=== PATIENT | male | born 1995 | race Caucasian/White ===

== ENCOUNTER → 2018-05-01 | Emergency (ER) | payer BC, OTHER ==
[~2018-05-01] VITALS: Ht 185.4 cm; Wt 72.6 kg
[~2018-05-01] MED LIST: ACETAMINOPHEN 500 MG TAB (TYLENOL) PO STA; CEFD300C3 PO; IBUPROFEN 800 MG (MOTRIN) TAB PO STA; LACTATED RINGERS 1,000 ML IV ONE; NS IV 1000 ML 1,000 ML ONE; RX-OSELTAMIVIR 75 MG (TAMIFLU) BOX OF 10 PO STA; cefTRIAXone FOR IV USE 1,000 MG in WATER (STERILE) FOR INJECTION 10 ML IV ONE
[2018-05-01 01:41] LABS: BASOPHILS % (AUTO) 0 % (0-10); EOSINOPHILS % (AUTO) 0 % (0-10); HEMATOCRIT 42 % (40-54); LYMPHOCYTES # (AUTO) 0.6 X 10^3 (1.0-4.0); LYMPHOCYTES % (AUTO) 5 % (12-44); MEAN CORPUSCULAR HEMOGLOBIN 31 PG (25-34); MEAN CORPUSCULAR HGB CONC 36 G/DL (32-36); MEAN CORPUSCULAR VOLUME 86 FL (80-99); MEAN PLATELET VOLUME 9.3 FL (7.4-10.4); MONOCYTES # (AUTO) 1.1 X 10^3 (0.0-1.0); MONOCYTES % (AUTO) 9 % (0-12); NEUTROPHILS # (AUTO) 10.4 X 10^3 (1.8-7.8); NEUTROPHILS % (AUTO) 86 % (42-75); PLATELET COUNT 228 10^3/uL (130-400); RED CELL DISTRIBUTION WIDTH 12.2 % (10.0-14.5); WHITE BLOOD COUNT 12.1 10^3/uL (4.3-11.0)
[2018-05-01 01:50] LABS: INR 1.2 (0.8-1.4); PROTHROMBIN TIME PATIENT 14.8 SEC (12.2-14.7)
--- NOTE | 2018-05-01 01:57 | ED General ---
General Chief Complaint: Fever-Adult/Adol Stated Complaint: PASSED OUT & HIT HEAD AT 9:30AM,SHAKING, CONFUSSIO Source of Information: Patient, Other (GIRLFRIEND) History of Present Illness Date Seen by Provider: May 01, 2018 Time Seen by Provider: 01:25 Initial Comments PT ARRIVES VIA POV FROM [place] PT STATES THAT AT 0915 THIS AM, HE PASSED OUT AT WORK STATES HE STARTED TO HAVE BAD CHILLS, AND THEN HIS STOMACH HURT A LITTLE, AND HE PASSED OUT HE WAS WALKING TO BATHROOM WAS NOT WITNESSED, BUT STATES HE HIT HIS HEAD/MOUTH ON THE SINK HE BROKE 3 TEETH ON LEFT UPPER MOLAR/PREMOLAR AREA HAS A SORE BUMP BEHIND HIS LEFT EAR, FROM WHERE HE HIT HIS HEAD. NO NECK PAIN NO PARESTHESIAS OR MOTOR DEFICITS NO VISION CHANGES NO DIZZINESS NO HEADACHE NO PALPITATIONS NO CHEST PAIN OR SHORTNESS OF BREATH STATES HE DID REPORT TO HIS EMPLOYER, BUT DID NOT SEEK MEDICAL CARE UNTIL NOW PT DID GO TO A DENTIST AT 1000 AM TODAY, AND "DIDN'T CARE FOR HIM", SO WENT TO ANOTHER DENTIST AT 1400 TODAY AND THAT DENTIST PULLED HIS TOOTH AND GAVE RX FOR CLINDAMYCIN STATES HIS STOMACH HAS NOT HURT SINCE THAT TIME NO NAUSEA/VOMITING/DIARRHEA STATES HE IS URINATING A NORMAL AMOUNT AND NO PAIN / DISCOMFORT WITH URINATING STATES HE HAS NOT EATEN TODAY--ONLY BEEN DRINKING COFFEE--STATES HIS MOUTH HURTS FROM WHERE THE TOOTH WAS PULLED NO COUGH OR NASAL CONGESTION/DRAINAGE NO SORE THROAT STATES HE HAS CONTINUED TO HAVE CHILLS AND HAS BEEN SHIVERING OFF AND ON ALL DAY HIS MOM CHECKED HIS TEMP AROUND 2000 TONIGHT AND IT WAS 101, SO SHE GAVE HIM 1 ADVIL 200 MG PT HAS BEEN HAVING CHILLS AND SHAKING AND HIS TEETH WERE CHATTERING, SO CAME HERE. PT STATES HE HAS PASSED OUT BEFORE, AND WAS TOLD BECAUSE HIS BLOOD PRESSURE WAS LOW PT DOES DRINK "4-5 BEERS" EVERY DAY, BUT CLAIMS NO BEER YESTERDAY OR TODAY. NO SEIZURE ACTIVITY REPORTED NOW OR IN THE PAST PCP: DR. VARMA IN [facility] Allergies and Home Medications Allergies Coded Allergies: Penicillins (Verified Allergy, Unknown, 05/01/18) Patient Home Medication List Home Medication List Reviewed: Yes Review of Systems Review of Systems Constitutional: chills, malaise, weakness EENTM: see HPI, dental problems, mouth pain, other (NO PHOTOPHOBIA); No ear pain, No blurred vision, No double vision, No mouth swelling, No epistaxis, No nose congestion, No nose pain, No throat pain Respiratory: no symptoms reported; No cough, No short of breath, No wheezing Cardiovascular: see HPI; No chest pain, No edema, No palpitations; syncope; No vascular heart diseas Gastrointestinal: see HPI, abdominal pain; No diarrhea, No nausea, No vomiting Genitourinary: no symptoms reported; No decreased output Musculoskeletal: no symptoms reported Skin: no symptoms reported Psychiatric/Neurological: See HPI; Denies Headache, Denies Numbness, Denies Paresthesia, Denies Seizure, Denies Tingling, Denies Weakness Hematologic/Lymphatic: No Symptoms Reported Immunological/Allergic: no symptoms reported Past Vlxxoqi-Gbmhpi-Jtxekt Hx Patient Social History Alcohol Use: Regular Use (DRINKS 4-5 BEERS EVERY DAY) Recreational Drug Use: No Smoking Status: Never a Smoker (BUT CHEWS TOBACCO) Type Used: Smokeless Tobacco Recent Foreign Travel: No Immunizations Up To Date Tetanus Booster (TDap): Less than 5yrs PED Vaccines UTD: Yes Past Medical History Surgeries: Yes (RIGHT HAND FX/PINNED) Orthopedic, Tonsillectomy Respiratory: No Cardiac: No Neurological: No Genitourinary: No Gastrointestinal: No Musculoskeletal: Yes (FX RIGHT HAND/ORIF) Fractures Endocrine: No HEENT: Yes (ENLARGED ADENOIDS) Tonsilitis Cancer: No Psychosocial: No Integumentary: No Blood Disorders: No Physical Exam Vital Signs Vital Signs - First Documented 05/01/18 01:25 Temp 104.3 Pulse 100 Resp 20 B/P (MAP) 113/73 (86) Pulse Ox 92 O2 Delivery Room Air Capillary Refill : Height, Weight, BMI Height: '" Weight: lbs. oz. kg; BMI Method: General Appearance: No Apparent Distress, Thin, Other (FLUSHED, VERY WARM, FLAT AFFECT. ) HEENT: PERRL/EOMI, TMs Normal, Pharynx Normal, Other (LEFT UPPER PREMOLAR IS MISSING, AND 1ST AND 2ND MOLARS ON LEFT UPPER JAW WITH CHIPS/FRACTURES. NO BLEEDING OR GUM SWELLING. MILD TENDERNESS TO LEFT MASTOID AREA. NO SWELLING OR BRUISING NOTED. ) Neck: Full Range of Motion, Normal Inspection, Non Tender, Supple Respiratory: Chest Non Tender, Normal Breath Sounds, No Accessory Muscle Use, No Respiratory Distress Cardiovascular: Regular Rate, Rhythm, No Edema, No Gallop, No JVD, No Murmur, Normal Peripheral Pulses Gastrointestinal: Normal Bowel Sounds, No Organomegaly, No Pulsatile Mass, Non Tender, Soft Back: Normal Inspection, No CVA Tenderness, No Vertebral Tenderness Extremity: Normal Capillary Refill, Normal Inspection, Normal Range of Motion, Non Tender, No Calf Tenderness, No Pedal Edema Neurologic/Psychiatric: Alert, Oriented x3, No Motor/Sensory Deficits, Normal Mood/Affect, 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 ); No Diaphoresis, No Petechia, No Rash Focused Exam Lactate Level 05/01/18 01:31: Lactic Acid Level 0.75 Lactic Acid Level Laboratory Tests Test 05/01/18 01:31 Lactic Acid Level 0.75 MMOL/L (0.50-2.00) Progress/Results/Core Measures Suspected Sepsis SIRS Temperature: Pulse: Respiratory Rate: Laboratory Tests 05/01/18 01:31: White Blood Count 12.1H Blood Pressure / Mean: 05/01/18 01:31: Lactic Acid Level 0.75 Laboratory Tests 05/01/18 01:31: Creatinine 0.91, INR Comment 1.2, Platelet Count 228, Total Bilirubin 0.8 Results/Orders Lab Results Laboratory Tests Test 05/01/18 01:31 05/01/18 01:33 05/01/18 01:40 05/01/18 01:51 Range/Units White Blood Count 12.1 H 4.3-11.0 10^3/uL Red Blood Count 4.82 4.35-5.85 10^6/uL Hemoglobin 15.0 13.3-17.7 G/DL Hematocrit 42 40-54 % Mean Corpuscular Volume 86 80-99 FL Mean Corpuscular Hemoglobin 31 25-34 PG Mean Corpuscular Hemoglobin Concent 36 32-36 G/DL Red Cell Distribution Width 12.2 10.0-14.5 % Platelet Count 228 130-400 10^3/uL Mean Platelet Volume 9.3 7.4-10.4 FL Neutrophils (%) (Auto) 86 H 42-75 % Lymphocytes (%) (Auto) 5 L 12-44 % Monocytes (%) (Auto) 9 0-12 % Eosinophils (%) (Auto) 0 0-10 % Basophils (%) (Auto) 0 0-10 % Neutrophils # (Auto) 10.4 H 1.8-7.8 X 10^3 Lymphocytes # (Auto) 0.6 L 1.0-4.0 X 10^3 Monocytes # (Auto) 1.1 H 0.0-1.0 X 10^3 Eosinophils # (Auto) 0.0 0.0-0.3 10^3/uL Basophils # (Auto) 0.0 0.0-0.1 10^3/uL Neutrophils % (Manual) 87 % Lymphocytes % (Manual) 2 % Monocytes % (Manual) 6 % Band Neutrophils 5 % Blood Morphology Comment NORMAL Prothrombin Time 14.8 H 12.2-14.7 SEC INR Comment 1.2 0.8-1.4 Activated Partial Thromboplast Time 38 H 24-35 SEC Sodium Level 139 135-145 MMOL/L Potassium Level 3.9 3.6-5.0 MMOL/L Chloride Level 104 98-107 MMOL/L Carbon Dioxide Level 23 21-32 MMOL/L Anion Gap 12 5-14 MMOL/L Blood Urea Nitrogen 14 7-18 MG/DL Creatinine 0.91 0.60-1.30 MG/DL Estimat Glomerular Filtration Rate > 60 BUN/Creatinine Ratio 15 Glucose Level 105 70-105 MG/DL Lactic Acid Level 0.75 0.50-2.00 MMOL/L Calcium Level 10.1 8.5-10.1 MG/DL Corrected Calcium 8.5-10.1 MG/DL Magnesium Level 1.9 1.8-2.4 MG/DL Total Bilirubin 0.8 0.1-1.0 MG/DL Aspartate Amino Transf (AST/SGOT) 18 5-34 U/L Alanine Aminotransferase (ALT/SGPT) 18 0-55 U/L Alkaline Phosphatase 40 40-136 U/L Total Protein 7.5 6.4-8.2 GM/DL Albumin 4.9 H 3.2-4.5 GM/DL TSH [place] Testing 0.90 0.35-4.94 UIU/ML Monoscreen NEGATIVE NEGATIVE Group A Streptococcus Screen NEGATIVE NEGATIVE Glucometer 97 70-110 MG/DL Urine Color YELLOW Urine Clarity CLEAR Urine pH 5 5-9 Urine Specific [place] 1.020 1.016-1.022 Urine Protein 1+ H NEGATIVE Urine Glucose (UA) NEGATIVE NEGATIVE Urine Ketones 1+ H NEGATIVE Urine Nitrite NEGATIVE NEGATIVE Urine Bilirubin NEGATIVE NEGATIVE Urine Urobilinogen NORMAL NORMAL MG/DL Urine Leukocyte Esterase 1+ H NEGATIVE Urine RBC (Auto) NEGATIVE NEGATIVE Urine RBC NONE /HPF Urine WBC 0-2 /HPF Urine Squamous Epithelial Cells 2-5 /HPF Urine Crystals NONE /LPF Urine Bacteria NEGATIVE /HPF Urine Casts NONE /LPF Urine Mucus LARGE H /LPF Urine Culture Indicated NO Urine Opiates Screen NEGATIVE NEGATIVE Urine Oxycodone Screen NEGATIVE NEGATIVE Urine Methadone Screen NEGATIVE NEGATIVE Urine Propoxyphene Screen NEGATIVE NEGATIVE Urine Barbiturates Screen NEGATIVE NEGATIVE Ur Tricyclic Antidepressants Screen NEGATIVE NEGATIVE Urine Phencyclidine Screen NEGATIVE NEGATIVE Urine Amphetamines Screen NEGATIVE NEGATIVE Urine Methamphetamines Screen NEGATIVE NEGATIVE Urine Benzodiazepines Screen NEGATIVE NEGATIVE Urine Cocaine Screen NEGATIVE NEGATIVE Urine Cannabinoids Screen NEGATIVE NEGATIVE Micro Results Microbiology 05/01/18 Influenza Types A,B Antigen (CHANTAL) - Final, Complete My Orders Orders - LONDON GARCIA DO Accucheck Stat ONCE (05/01/18:31) Saline Lock/Iv-Start (05/01/18:31) Ekg Tracing (05/01/18:31) Monitor-Rhythm Ecg Trace Only (05/01/18:31) Cbc With Automated Diff (05/01/18:) Comprehensive Metabolic Panel (05/01/18:31) Drug Screen Stat (Urine) (05/01/18:31) Lactic Acid Analyzer (05/01/18:31) Magnesium (05/01/18:31) Monotest (05/01/18:) Protime With Inr (05/01/18:) Partial Thromboplastin Time (05/01/18:31) Rapid Strep A Screen (05/01/18:31) Thyroid Analyzer (05/01/18 01:31) Ua Culture If Indicated (05/01/18:31) Blood Culture (05/01/18:31) Influenza A And B Antigens (05/01/18:31) Ct Head/Face/Cervical Wo (05/01/18:31) Chest Pa/Lat (2 View) (05/01/18:31) Saline Lock/Iv-Start (05/01/18:31) Saline Lock/Iv-Start (05/01/18 01:31) Lactated Ringers (Lr 1000 Ml Iv Solution (05/01/18 01:31) Acetaminophen Tablet (Tylenol Tablet) (05/01/18 01:31) Ibuprofen Tablet (Motrin Tablet) (05/01/18 01:31) Ns Iv 1000 Ml (Sodium Chloride 0.9%) (05/01/18 01:33) Manual Differential (05/01/18 01:31) Ceftriaxone For Iv Use (Rocephin For I (05/01/18 02:30) Saline Lock/Iv-Start (05/01/18 02:30) Lactated Ringers (Lr 1000 Ml Iv Solution (05/01/18 02:30) Medications Given in ED Current Medications Medications Dose Ordered Sig/Yandel Route Start Time Stop Time Status Last Admin Dose Admin Ceftriaxone Sodium 1000 mg/ Sterile Water 10 ml @ 200 mls/hr ONCE ONCE IV 05/01/18 02:30 05/01/18 02:32 DC 05/01/18 02:50 200 MLS/HR Lactated Ringer's 1,000 ml @ 0 mls/hr Q0M ONCE IV 05/01/18 01:31 05/01/18 01:36 DC 05/01/18 01:50 1,000 MLS/HR Lactated Ringer's 1,000 ml @ 0 mls/hr Q0M ONCE IV 05/01/18 02:30 05/01/18 02:31 UNV 05/01/18 02:50 1,000 MLS/HR Vital Signs/I&O 05/01/18 05/01/18 05/01/18 05/01/18 01:25 01:40 01:40 02:16 Temp 104.3 104.3 104.3 101.9 Pulse 100 87 Resp 20 20 B/P (MAP) 113/73 (86) 115/64 Pulse Ox 92 94 O2 Delivery Room Air Room Air Capillary Refill : Point of Care Testing Finger Stick Blood Glucose: 97 Blood Glucose Action Taken: DR. JOSE MD IN ROOM & NOTIFIED. Progress Note : Progress Note UNEVENTFUL ER STAY PT STATES HE FEELS MUCH BETTER TEMP DOWN AT DISMISSAL PT ESSENTIALLY ASYMPTOMATIC DURING ER STAY, OTHER THAN C/O BEING COLD WITH TEMP OF > 104. THIS RESOLVED AT DISMISSAL ECG Initial ECG Impression Date: May 01, 2018 Initial ECG Impression Time: 01:39 Initial ECG Rate: 97 Initial ECG Rhythm: Normal Sinus Initial ECG Impression: Normal Initial ECG Comparisson: No Previous ECG Available Diagnostic Imaging Comments CXR--QUESTIONABLE RLL INFILTRATE, PENDING RADIOLOGIST REVIEW CT HEAD/MAXILLOFACIALS/CERVICAL SPINE--LEFT FIRST BICUSPID EXTRACTION, OTHERWISE NO ACUTE PROCESS, PER [facility] VIA FAX @ [phone] Reviewed: Reviewed by Me Departure Impression Primary Impression: SYNCOPAL EPISODE Additional Impressions: Dental injury Minor head injury Fever Influenza-like illness POSSIBLE RLL PNEUMONIA Mild dehydration Disposition: 01 HOME, SELF-CARE Condition: Improved Departure-Patient Inst. Referrals: SELFGAUDENCIO MD (PCP/Family) Primary Care Physician Patient Instructions: Closed Head Injury (DC), Community-Acquired Pneumonia, Adult (DC), Dehydration, Adult (DC), Flu, Adult (DC), Fractured Tooth (DC), Syncope (Fainting) (DC) Add. Discharge Instructions: CONTINUE CLINDAMYCIN PRESCRIBED TYLENOL 1 GRAM 4 TIMES A DAY AND MOTRIN 800 MG 4 TIMES A DAY NEEDED FOR PAIN OR FEVER TAKE TAMIFLU TWICE A DAY FOR 5 DAYS LOTS OF CLEAR LIQUIDS--WATER, BROTH, JELLO, GATORADE--DRINK ENOUGH SO YOU ARE URINATING EVERY 2-3 HOURS WHILE AWAKE FOLLOW UP WITH YOUR DR IN 2-3 DAYS IF NO BETTER RETURN TO ER IF WORSE All discharge instructions reviewed with patient and/or family. Voiced understanding. Scripts Cefdinir (Cefdinir) 300 Mg Capsule 300 MG PO BID for FOR INFECTION, #20 CAP Prov: LONDON GARCIA DO 05/01/18 LONDON GARCIA DO May 01, 2018 01:56
[2018-05-01 02:00] LABS: ALANINE AMINOTRANSFERASE 18 U/L (0-55); ALBUMIN 4.9 GM/DL (3.2-4.5); ALKALINE PHOSPHATASE 40 U/L (40-136); BILIRUBIN,TOTAL 0.8 MG/DL (0.1-1.0); BUN/CREATININE RATIO 15; CALCIUM 10.1 MG/DL (8.5-10.1); CARBON DIOXIDE 23 MMOL/L (21-32); CHLORIDE 104 MMOL/L (98-107); CREATININE SERUM 0.91 MG/DL (0.60-1.30); GFR ESTIMATED > 60; GLUCOSE 105 MG/DL (70-105); MAGNESIUM 1.9 MG/DL (1.8-2.4); POTASSIUM 3.9 MMOL/L (3.6-5.0); SODIUM 139 MMOL/L (135-145); TOTAL PROTEIN 7.5 GM/DL (6.4-8.2)
[2018-05-01 02:00] LABS: BILIRUBIN,URINE NEGATIVE (NEGATIVE); CLARITY,URINE CLEAR; COLOR,URINE YELLOW; GLUCOSE, URINE (UA) NEGATIVE (NEGATIVE); KETONES,URINE 1+ (NEGATIVE); LEUKOCYTE ESTERASE ,URINE 1+ (NEGATIVE); NITRITE,URINE NEGATIVE (NEGATIVE); PH,URINE 5 (5-9); PROTEIN,URINE 1+ (NEGATIVE); UROBILINOGEN,URINE NORMAL (NORMAL)
[2018-05-01 02:10] LABS: BAND NEUTROPHILS 5 %; LYMPHOCYTES % (MANUAL) 2 %; MONOCYTES % (MANUAL) 6 %; NEUTROPHILS % (MANUAL) 87 %; RBC MORPH NORMAL
[2018-05-01 02:11] LABS: BACTERIA,URINE NEGATIVE /HPF; WBC,URINE 0-2 /HPF
[2018-05-01 02:21] LABS: AMPHETAMINE SCREEN, URINE NEGATIVE (NEGATIVE); BARBITURATE SCREEN URINE NEGATIVE (NEGATIVE); BENZODIAZEPINES SCREEN URINE NEGATIVE (NEGATIVE); CANNABINOID SCREEN, URINE NEGATIVE (NEGATIVE); COCAINE SCREEN URINE NEGATIVE (NEGATIVE); METHADONE STAT NEGATIVE (NEGATIVE); METHAMPHETAMINE SCREEN URINE S NEGATIVE (NEGATIVE); OPIATE SCREEN URINE NEGATIVE (NEGATIVE); OXYCODONE STAT NEGATIVE (NEGATIVE); PROPOXYPHENE STAT NEGATIVE (NEGATIVE); TRICYCLIC ANTIDEPRESSANTS SCRE NEGATIVE (NEGATIVE)
--- NOTE | 2018-05-01 03:00 | NUR ---
PT TEMP ASSESSED TO BE 100.9
[2018-05-01 04:04] VITALS: BP 101/60
--- NOTE | 2018-05-01 06:23 | Diagnostic Imaging Report ---
CHEST PA/LAT (2 VIEW) Indication: Fever Comparison: None available. Findings: No focal pneumonic consolidation, pleural effusion or pneumothorax. Normal heart size and pulmonary vasculature. Impression: No acute cardiopulmonary process. Specifically, there are no features of right lower lobe infiltrate. Dictated by: Dictated on workstation # [id number]
--- NOTE | 2018-05-01 06:33 | Diagnostic Imaging Report ---
PROCEDURE: CT head, face, and cervical spine without contrast. TECHNIQUE: Multiple contiguous axial images were obtained through the head, neck, and facial bones without the use of intravenous contrast. Sagittal and coronal reformations through the cervical spine and facial bones were also performed. INDICATION: Trauma, fall with facial, head and neck pain. COMPARISON: None available. FINDINGS: CT head: No hyperdense hemorrhage or space-occupying mass. No hydrocephalus or midline shift. Lewis-white matter differentiation is preserved. Basilar cisterns are widely patent. No acute skull fracture. CT face: No acute fracture in the mid face or mandible. The left first maxillary premolar tooth is surgically absent. Polypoidal mucosal thickening of bilateral maxillary sinuses. Deedee bullosa is present within the left middle nasal turbinate. No features of soft tissue injury to the orbits. Minimal mucosal thickening in the ethmoid air cells. CT cervical spine: No acute fracture or traumatic malalignment in the cervical spine. Mild kyphotic curvature is present in the cervical spine centered at C6-C7. No high-grade spinal stenosis. No cervical lymphadenopathy. Airway is widely patent. Lung apices are clear. IMPRESSION: 1. No acute intracranial abnormality or skull fracture. 2. No acute fracture in the mid face or mandible. 3. No fracture or traumatic malalignment in the cervical spine. 4. Findings are in agreement with the preliminary report. Dictated by: Dictated on workstation # [id number]
== END | disposition home or self-care (01) ==
LOC: EDUNIT# 01:17 → ER 01:21
DX: S09.90XA Unspecified injury of head, initial encounter (principal); S09.93XA Unspecified injury of face, initial encounter; R55 Syncope and collapse; J11.1 Influenza due to unidentified influenza virus with other respiratory manifestations; E86.0 Dehydration; F17.220 Nicotine dependence, chewing tobacco, uncomplicated; Z90.89 Acquired absence of other organs; Z88.0 Allergy status to penicillin; W01.198A Fall on same level from slipping, tripping and stumbling with subsequent striking against other object, initial encounter; Y92.002 Bathroom of unspecified non-institutional (private) residence as the place of occurrence of the external cause
CPT/HCPCS: 36415; 70450; 70486; 71046; 72125; 80053; 80306; 81000; 82962; 83605; 83735; 84443; 85007; 85027; 85610; 85730; 86308; 87040; 87430; 87804; 93005; 93041